=== PATIENT | male | born 1965 | race Caucasian/White ===

== ENCOUNTER → 2018-08-02 | Outpatient (CLI) | payer BC ==
--- NOTE | 2018-08-02 11:56 | REP ---
KUB: Single view. HISTORY: Kidney stone. No comparison imaging. FINDINGS: Psoas margins and flank stripes are intact. Bowel gas pattern is normal. Stool and gas overlie the kidneys. No definite upper tract calculus is seen. Minimal vascular calcification is noted. No ureteral or bladder stone is visible. There is a dextroconvex curvature in the lumbar spine mild in degree. IMPRESSION: No urinary tract calculus is visible on KUB. There is a moderate amount of bowel gas overlying the kidneys. Electronically Signed by Hugo Aguirre MD 08/02/2018 04:02 P
== END ==
LOC: M SMT 10:01
PROVIDERS: ATTEND Specialist
DX: N20.0 Calculus of kidney (principal)

== ENCOUNTER → 2018-08-12 | Outpatient (CLI) | payer BC ==
--- NOTE | 2018-08-12 09:20 | REP ---
Urinary tract sonography: History: Kidney stones. Comparison KUB August 02, 2018. Findings: Scanning at the level of the urinary bladder shows that it is not well distended. No bladder abnormality is seen. Renal cortical echogenicity pattern is normal and renal contours are smooth bilaterally. Right kidney measures 10.3 x 6.5 x 5.5 cm. Left renal dimensions are 10.1 x 5.4 x 6.0 cm. There is no evidence of hydronephrosis on either side. No definite urinary tract calculus is appreciated. Impression: Negative urinary tracts sonography. Electronically Signed by Hugo Aguirre MD 08/12/2018 09:12 A
== END ==
LOC: M RAD 06:59
PROVIDERS: ATTEND Specialist
DX: N20.0 Calculus of kidney (principal)

== ENCOUNTER 2023-06-28 10:08 | Emergency (ER) | payer OTHER, BC ==
[~2023-06-28] VITALS: Ht 172.7 cm; Wt 75.0 kg
[2023-06-28] MEDS ORDERED: MEDR4PAK PO (11:51)
[2023-06-28] MEDS ORDERED: IBUP-1022 PO (11:51)
[2023-06-28] MEDS ORDERED: METH-1164 PO (11:51)
[2023-06-28 12:06] VITALS: BP 140/73; TEMP 96.5; O2SAT 98
== END 2023-06-28 12:06 | disposition home or self-care (01) ==
LOC: M ED 10:08
DX: R20.2 Paresthesia of skin (principal); S43.402A Unspecified sprain of left shoulder joint, initial encounter; Y92.9 Unspecified place or not applicable; Y93.9 Activity, unspecified; Y99.0 Civilian activity done for income or pay; F10.10 Alcohol abuse, uncomplicated; Z79.1 Long term (current) use of non-steroidal anti-inflammatories (NSAID); Z79.899 Other long term (current) drug therapy

== ENCOUNTER → 2024-04-11 | Outpatient (CLI) | payer OTHER, BC ==
[~2024-04-11] MED LIST: IBUP-1022 PO; MEDR4PAK PO; METH-1164 PO
== END ==
LOC: M SOG 15:22
PROVIDERS: ATTEND Physician Assistant
DX: M25.512 Pain in left shoulder (principal)

== ENCOUNTER → 2024-09-03 | Outpatient (CLI) | payer BC ==
[~2024-09-03] MED LIST changes: +AMLO1TAB24 PO
== END ==
LOC: M OUTALCOH 12:56
PROVIDERS: ATTEND Psychiatry & Neurology Psychiatry
DX: F10.20 Alcohol dependence, uncomplicated (principal); F14.20 Cocaine dependence, uncomplicated; F17.200 Nicotine dependence, unspecified, uncomplicated

== ENCOUNTER 2024-10-01 08:40 | Outpatient (RCR) | payer BC | END 2024-10-02 | LOC: M OUTALCOH 08:40 | PROVIDERS: ATTEND Psychiatry & Neurology Psychiatry | DX: F10.20 Alcohol dependence, uncomplicated (principal); F14.20 Cocaine dependence, uncomplicated; F17.200 Nicotine dependence, unspecified, uncomplicated ==

== ENCOUNTER 2024-10-31 15:00 | Outpatient (RCR) | payer BC ==
[~2024-10-31 15:00] MED LIST changes: -IBUP-1022 PO; +IBUP600T42 PO
== END 2024-11-02 ==
LOC: M OUTALCOH 15:00
PROVIDERS: ATTEND Psychiatry & Neurology Psychiatry
DX: F10.20 Alcohol dependence, uncomplicated (principal); F14.20 Cocaine dependence, uncomplicated; F17.200 Nicotine dependence, unspecified, uncomplicated

== ENCOUNTER → 2024-12-02 | Outpatient (RCR) | payer BC | LOC: M OUTALCOH 11-04 09:52 | PROVIDERS: ATTEND Psychiatry & Neurology Psychiatry | DX: F10.20 Alcohol dependence, uncomplicated (principal); F14.20 Cocaine dependence, uncomplicated; F17.200 Nicotine dependence, unspecified, uncomplicated ==

== ENCOUNTER 2024-12-30 08:50 | Outpatient (RCR) | payer BC | END 2025-01-02 | LOC: M OUTALCOH 08:50 | PROVIDERS: ATTEND Psychiatry & Neurology Psychiatry | DX: F10.20 Alcohol dependence, uncomplicated (principal); F14.20 Cocaine dependence, uncomplicated; F17.200 Nicotine dependence, unspecified, uncomplicated ==

== ENCOUNTER 2025-01-27 08:48 | Outpatient (RCR) | payer BC | END 2025-02-01 | LOC: M OUTALCOH 08:48 | PROVIDERS: ATTEND Psychiatry & Neurology Psychiatry | DX: F10.20 Alcohol dependence, uncomplicated (principal); F14.20 Cocaine dependence, uncomplicated; F17.200 Nicotine dependence, unspecified, uncomplicated ==

== ENCOUNTER 2025-03-03 09:00 | Outpatient (RCR) | payer BC | END 2025-03-04 | LOC: M OUTALCOH 09:00 | PROVIDERS: ATTEND Psychiatry & Neurology Psychiatry | DX: F10.20 Alcohol dependence, uncomplicated (principal); F14.20 Cocaine dependence, uncomplicated; F17.200 Nicotine dependence, unspecified, uncomplicated ==